=== PATIENT | male | born 1965 | race Caucasian/White ===

== ENCOUNTER 2021-08-10 08:31 | Outpatient (CLI) | payer OTHER, SELFPAY ==
[2021-08-10 09:13] LABS: SARS-CoV-2 Ag Negative (Negative)
[2021-08-10 09:51] LABS: SARS-CoV-2 RNA PCR Positive (Negative)
== END 2021-08-10 08:32 | disposition home or self-care (01) ==
PROVIDERS: PCP Nurse Practitioner Family; Visit Provider Nurse Practitioner Family
DX: U07.1 COVID-19 (principal); J06.9 Acute upper respiratory infection, unspecified; R05.9 Cough, unspecified
CPT/HCPCS: 87426; C9803; U0003; U0005

== ENCOUNTER 2022-08-18 14:06 | Outpatient (CLI) | payer OTHER, SELFPAY ==
--- NOTE | ~2022-08-18 | XR_ITS ---
EXAMINATION: XR shoulder RT min 2V INDICATION: Right shoulder pain TECHNIQUE: Four views of the right shoulder are submitted. COMPARISON: None FINDINGS: Normal alignment. No fracture. There is mild osteoarthritis of the acromioclavicular and gl enohumeral joints. Soft tissues are unremarkable. IMPRESSION: 1. No acute osseous abnormality. Reviewed, dictated and finalized at location B. [facility]
--- NOTE | ~2022-08-18 | XR_ITS ---
EXAMINATION: XR humerus RT INDICATION: Right shoulder pain TECHNIQUE: Two views of the right humerus are obtained. COMPARISON: None available FINDINGS: No fracture, dislocation, or subluxation. The bones, soft tissues, and joint spaces are nor mal. IMPRESSION: 1. No acute osseous abnormality. Reviewed, dictated and finalized at location B. [facility]
== END 2022-08-18 14:07 | disposition home or self-care (01) ==
LOC: CHSIMG 14:09
PROVIDERS: PCP Family Medicine; Visit Provider Family Medicine
DX: M25.511 Pain in right shoulder (principal)
CPT/HCPCS: 73030; 73060

== ENCOUNTER 2022-08-29 10:25 | Outpatient (CLI) | payer OTHER, SELFPAY ==
[2022-08-29 10:38] LABS: Basophils Absolute Auto 0.1 K/mm3 (0.0-0.1); Basophils Percent Auto 1.2 % (0.2-1.2); Eosinophils Absolute Auto 0.4 K/mm3 (0-0.3); Eosinophils Percent Auto 4.4 % (0-4.4); Hematocrit 49.7 % (42.0-52.0); Hemoglobin 17.1 g/dL (14.0-18.0); Immature Granulocyte Absolute 0.06 K/mm3 (0.00-0.031); Immature Granulocyte Percent A 0.7 % (0-0.5); Lymphocytes Absolute Auto 2.06 K/mm3 (0.9-3.2); Lymphocytes Percent Auto 22.6 % (18.3-44.2); Mean Corpuscular HGB Conc 34.4 g/dl (32-36); Mean Corpuscular Hemoglobin 30.1 pg (26-34); Mean Corpuscular Volume 87.5 fl (80-100); Mean Platelet Volume 9.3 fl (7.4-10.4); Monocytes Absolute Auto 0.9 K/mm3 (0.1-0.6); Monocytes Percent Auto 9.7 % (2.6-8.5); Neutrophils Absolute Auto 5.6 K/mm3 (1.3-6.7); Neutrophils Percent Auto 61.4 % (45.5-73.1); Platelet Count Result 256 k/mm3 (150-375); Red Blood Count 5.68 M/mm3 (4.6-6.20); Red Cell Distribution Width 12.3 % (11.5-14.5); White Blood Count 9.1 K/mm3 (4.5-10.0)
[2022-08-29 11:26] LABS: Alanine Aminotransferase 26 U/L (6-50); Albumin Level 4.8 g/dL (3.5-5.1); Alkaline Phosphatase 72 U/L (38-126); Anion Gap 11 mmol/L (8-16); Aspartate Amino Transferase 22 U/L (17-59); Bilirubin,Total 0.8 mg/dL (0.2-1.3); Blood Urea Nitrogen 12 mg/dL (9-20); Calcium 9.4 mg/dL (8.4-10.2); Carbon Dioxide 26 mmol/L (22-30); Chloride 104 mmol/L (98-107); Estimated Glomerular Filt Rate > 60; Glucose 162 mg/dL (65-110); Potassium 4.5 mmol/L (3.4-5.0); Sodium 141 mmol/L (137-145)
[2022-09-02 12:08] LABS: Erythropoietin (EPO) 15.3 mIU/mL (2.6-18.5)
== END 2022-08-29 10:26 | disposition home or self-care (01) ==
LOC: ANHLAB 10:26
PROVIDERS: PCP Family Medicine; Visit Provider Internal Medicine Hematology & Oncology
DX: D75.1 Secondary polycythemia (principal)
CPT/HCPCS: 36415; 80053; 82668; 85025

== ENCOUNTER 2022-09-20 07:23 | Outpatient (CLI) | payer OTHER, SELFPAY ==
--- NOTE | ~2022-09-20 | MR_ITS ---
MRI of the right shoulder Technique: Axial proton-density fat-sat images, coronal proton density fat-sat and T2 fat-sat images, and sagittal T1-weighted and T2 fat-sat images were acquired. Clinical History: Pain Findings: There is severe degenerative change at the AC joint. Coracoclavicular, coracoacromial, and coracohumeral ligaments appear intact. There is mild supraspinatus and infraspinatus tendinosis. No definite partial or full-thickness tear. Subscapularis tendon is intact, with moderate tendinosis. Tendon of the long head of the biceps is i ntact. There are degenerative tearing of the superior labrum, extending to the anterosuperior, anterior, pro bably anteroinferior portions. Inferior glenohumeral ligament is intact. No degenerative change or effusion of the glenohumeral join t. No fluid distention of the subacromial/subdeltoid bursa. No muscle atrophy or edema. Impression: Severe AC joint degenerative change. Probable degenerative tearing of the superior labrum, extending to the anterosuperior, anterior, and possibly anteroinferior portions. Reviewed, dictated and finalized at location . [employer]CH[employer] Impression: Severe AC joint degenerative change. Probable degenerative tearing of the superior labrum, extending to the anterosu perior, anterior, and possibly anteroinferior portions.
== END 2022-09-20 07:24 | disposition home or self-care (01) ==
LOC: CHSIMG 07:23
PROVIDERS: PCP Family Medicine; Visit Provider Family Medicine
DX: M25.511 Pain in right shoulder (principal)
CPT/HCPCS: 73221

== ENCOUNTER 2023-01-08 09:52 | Outpatient (CLI) | payer OTHER, SELFPAY ==
[2023-01-08 10:02] LABS: Basophils Absolute Auto 0.1 K/mm3 (0.0-0.1); Basophils Percent Auto 0.7 % (0.2-1.2); Eosinophils Absolute Auto 0.4 K/mm3 (0-0.3); Eosinophils Percent Auto 3.1 % (0-4.4); Hematocrit 49.3 % (42.0-52.0); Hemoglobin 17.2 g/dL (14.0-18.0); Immature Granulocyte Absolute 0.08 K/mm3 (0.00-0.031); Immature Granulocyte Percent A 0.6 % (0-0.5); Lymphocytes Absolute Auto 1.68 K/mm3 (0.9-3.2); Lymphocytes Percent Auto 12.1 % (18.3-44.2); Mean Corpuscular HGB Conc 34.9 g/dl (32-36); Mean Platelet Volume 9.3 fl (7.4-10.4); Monocytes Absolute Auto 0.8 K/mm3 (0.1-0.6); Neutrophils Absolute Auto 10.7 K/mm3 (1.3-6.7); Neutrophils Percent Auto 77.5 % (45.5-73.1); Platelet Count Result 285 k/mm3 (150-375); Red Blood Count 5.73 M/mm3 (4.6-6.20); Red Cell Distribution Width 12.2 % (11.5-14.5); White Blood Count 13.9 K/mm3 (4.5-10.0)
[2023-01-08 10:11] LABS: Blood Urea Nitrogen 14 mg/dL (8-26); Carbon Dioxide 25 mmol/L (22-30); Chloride 102 mmol/L (98-109); Estimated Glomerular Filt Rate > 60; Glucose 151 mg/dL (70-105); Ionized Calcium (POC) 1.19 mmol/L (1.11-1.31); Potassium 4.3 mmol/L (3.5-4.9); Sodium 139 mmol/L (138-146)
== END 2023-01-08 09:53 | disposition home or self-care (01) ==
LOC: ANHLAB 09:53
PROVIDERS: PCP Family Medicine; Visit Provider Internal Medicine Hematology & Oncology
DX: D75.1 Secondary polycythemia (principal)
CPT/HCPCS: 36415; 80047; 85025

== ENCOUNTER 2023-01-09 15:44 | Emergency (ER) | payer OTHER, SELFPAY ==
--- NOTE | ~2023-01-09 | XR_ITS ---
EXAMINATION: XR chest 1V portable INDICATION: Cough and congestion TECHNIQUE: Portable AP chest at 1606 hours COMPARISON: None available FINDINGS: The lungs are free of acute opacities. No pleural effusion or pneumothorax. The cardiomedia stinal silhouette is normal. There is eventration of the right hemidiaphragm. IMPRESSION: 1. No acute cardiopulmonary abnormality. Reviewed, dictated and finalized at location B.
[2023-01-09 15:44] VITALS: BP 140/89; PULSE 107; RESP 20; TEMP 36.4; O2SAT 97
[2023-01-09 15:45] VITALS: O2SAT 97
--- NOTE | 2023-01-09 15:57 | ED.URI ---
HPI - URI/Sore Throat General Chief Complaint: Upper Respiratory Infection Stated Complaint: body aches, short of breath Time Seen by Provider: 01/09/23 15:53 Source: patient and RN notes reviewed Mode of arrival: ambulatory Limitations: no limitations History of Present Illness MD elicited complaint: fever and cough Onset (ago): day(s) (1) Consistency: constant Severity: moderate Description of mucous: clear Able to tolerate fluids by mouth: Yes Exacerbating factors: nothing Relieving factors: nothing Context: sick contacts Associated symptoms: fever ( subjective), chills, myalgias and headache Treatments prior to arrival: none Related Data Home Medications Medication Instructions Recorded Confirmed lisinopril 10 mg tablet 10 mg PO DAILY 01/09/23 01/09/23 metformin 500 mg tablet 1,000 mg PO BID 01/09/23 01/09/23 Allergies Allergy/AdvReac Type Severity Reaction Status Date / Time No Known Allergies Allergy Mild Unverified 12/25/22 09:40 Review of Systems Review of Systems: All systems reviewed & are unremarkable except as noted in HPI and below Gastrointestinal: Gastrointestinal: Denies nausea and Denies vomiting PMFSH Family History Family History (System 12/25/22 @ 09:40 by Heidi Lucero) Grandparent Family history of malignant neoplasm Other Diabetes mellitus Family history of coronary artery disease Hypertension Social History Social History Smoking status: Smoker, status unknown Alcohol intake: current Exam Const: General: no acute distress, alert and ill appearing acutely Nutritional Appearance: well nourished Orientation/consciousness: patient oriented x3 Limitations: no limitations HENMT: Head: normal to inspection Ears: external ears normal Face/Nose/Sinus: Normal external nose present Face and sinus: normal facial exam Mouth: Yes moist mucous membranes Eyes: Conjunctivae: conjunctivae normal Pupils: Equal, round and reactive pupils present EOM: EOMs intact bilaterally Neck: Neck: normal visual inspection Resp: Effort & Inspection: normal respiratory effort Auscultation: clear to auscultation bilaterally Cardio: Rate: tachycardic Rhythm: regular rhythm GI: GI Palp: Yes Soft to palpation and No Tenderness to palpation present (GI) Auscultation: normal bowel sounds Back/Spine/Pelvis: Cervical Spine: cervical ROM normal Thoracic/Lumbar Spine: thoraco-lumbar ROM normal Skin: General skin exam: normal color Rashes: no rashes Neuro: General: patient oriented x3, moves all extremities, no focal motor deficits and CN's II-XI intact bilaterally Speech: normal speech Gait exam (Neuro): Normal gait present Extrem: General: normal to inspection and no clubbing, cyanosis or edema Psych: Mental Status: mental status grossly normal Affect: normal affect Attitude: cooperative Course Vital Signs Vital signs: Vital Signs Temperature 36.4 C L 01/09/23 15:44 Pulse Rate 107 H 01/09/23 15:44 Respiratory Rate 20 01/09/23 15:44 Blood Pressure 140/89 01/09/23 15:44 Pulse Oximetry 97 01/09/23 15:44 Oxygen Delivery Room Air 01/09/23 15:44 Temperature 36.4 C L 01/09/23 15:44 Pulse Rate 107 H 01/09/23 15:44 Respiratory Rate 20 01/09/23 15:44 Blood Pressure 140/89 01/09/23 15:44 Pulse Oximetry 97 01/09/23 15:44 Oxygen Delivery Room Air 01/09/23 15:44 MDM - URI/Sore Throat Differential Diagnosis Differential diagnosis: Likely upper respiratory infection, viral infection, bronchitis, influenza and other ( COVID, anemia, electrolyte abnormality, pneumonia) Lab Data Attestation: I reviewed the patient's lab results. Discharge Plan Discharge Clinical Impression: Influenza Patient Disposition: Home, Self-Care Condition: Stable Instructions: Influenza (ED) Additional Instructions: Get plenty of rest, drink plenty of fluids. Tylenol or Motrin as needed for fever chi
[2023-01-09 16:19] LABS: Hematocrit 49.2 % (40.0-54.0); Hemoglobin 17.2 g/dL (14.0-18.0); Mean Corpuscular Volume 85.9 fL (78.0-102.0); Mean Platelet Volume 9.4 fl (8.7-11.0); Platelet Count Result 226 K/mm3 (150-420); Red Blood Count 5.73 M/mm3 (4.70-6.10); White Blood Count 7.9 K/mm3 (4.8-10.8)
[2023-01-09 16:35] LABS: Alanine Aminotransferase 25 U/L (16-63); Alkaline Phosphatase 75 U/L (46-116); Anion Gap 11 mmol/L (8-16); Aspartate Amino Transferase 14 U/L (15-37); Blood Urea Nitrogen 11 mg/dL (7-18); CRP 3.3 mg/dL (0.0-0.9); Calcium 8.9 mg/dL (8.5-10.1); Carbon Dioxide 25 mmol/L (21-32); Chloride 101 mmol/L (98-108); Estimated CRCL calculation 103 ml/min; Estimated Glomerular Filt Rate > 60; Glucose 120 mg/dL (70-99); Magnesium 1.8 mg/dL (1.8-2.4); Osmolality Calculated 284 mOsm/kg (285-295); Sodium 137 mmol/L (136-145); Total Protein 7.3 g/dL (6.4-8.2)
[2023-01-09 16:45] LABS: Band Neutrophils Percent 0 % (0-6); Basophils Percent Manual 0 % (0-1); Eosinophils Absolute Manual 0.07 K/mm3 (0.02-0.5); Eosinophils Percent Manual 1 % (1-6); Lymphocytes Absolute Manual 1.02 K/mm3 (1.1-4.5); Lymphocytes Percent Manual 13 % (18-44); Monocytes Absolute Manual 1.26 K/mm3 (0.1-0.90); Monocytes Percent Manual 16 % (3-9); Neutrophils Absolute Manual 5.53 K/mm3 (1.3-6.7); Neutrophils Percent Manual 70 % (46-73); Platelet Estimate Adequate (Adequate); Total Cells Counted 100
[2023-01-09 16:46] LABS: Influenza A QL RT-PCR Positive (Negative); Influenza B QL RT-PCR Negative (Negative); SARS-CoV-2 RNA PCR Negative (Negative)
[2023-01-09 16:50] VITALS: BP 115/86; PULSE 89; RESP 20; TEMP 36.4; O2SAT 97
== END 2023-01-09 16:53 | disposition home or self-care (01) ==
PROVIDERS: Emergency Provider Emergency Medicine; PCP Family Medicine
DX: J11.1 Influenza due to unidentified influenza virus with other respiratory manifestations (principal); Z79.84 Long term (current) use of oral hypoglycemic drugs; Z20.822 Contact with and (suspected) exposure to COVID-19
CPT/HCPCS: 36415; 71045; 80053; 83605; 83735; 85025; 86140; 87636; 88305; 99283

== ENCOUNTER 2024-08-29 08:35 | Outpatient (CLI) | payer OTHER, SELFPAY ==
--- NOTE | 2024-08-29 08:51 | EST_ITS ---
Patient Info Name: Kranthi Dawson Age: 58 years : 1965 Gender: Male Ht: 68 in Wt: 220 lbs BSA: 2.22 m2 HR: 99 bpm BP: 124 / 93 mmHg Heart Rhythm: Right Bundle Branch Block, Sinus Rhythm Technical Quality: Fair Exam Date: 08/29/2024 9:11 AM Exam Location: [facility] Patient Status: Outpatient Admit Date: 08/29/2024 Staff Ordering Physician: Ha Sena MD Attending Provider: Ha Sena MD Exam Type: CA stress test treadmill Study Info A treadmill exercise stress test was performed. History/Risk Factors Hypertension: Yes Diabetes Mellitus: Yes Tobacco Use: Current - Frequency Unknown Summary 1. 1. Negative Judah exercise stress test for ischemic ST changes by ECG criteria. 2. 2. Reduced functional capacity, achieving 7 METs of workload. 3. 3. Hypertensive response to exercise. 4. 4. Appropriate HR response to exercise. 5. 5. Appropriate HR recovery at 1 minute post exercise. 6. 6. No imaging with stress testing. Protocol: Judah Stress ECG Details Stage: REST Duration (min): 0 min : 48 sec Speed (mph): 0.0 Grade (%): 0 HR (bpm): 97 SBP (mmHg): --- DBP (mmHg): --- METS: --- Stage: REST Duration (min): 1 min : 51 sec Speed (mph): 0.0 Grade (%): 0 HR (bpm): 99 SBP (mmHg): 124 DBP (mmHg): 93 METS: --- Stage: REST Duration (min): 24 min : 2 sec Speed (mph): 0.0 Grade (%): 0 HR (bpm): 105 SBP (mmHg): 124 DBP (mmHg): 93 METS: --- Stage: STAGE 1 Duration (min): 1 min : 0 sec Speed (mph): 1.7 Grade (%): 10 HR (bpm): 135 SBP (mmHg): 124 DBP (mmHg): 93 METS: --- Stage: STAGE 1 Duration (min): 2 min : 0 sec Speed (mph): 1.7 Grade (%): 10 HR (bpm): 137 SBP (mmHg): 124 DBP (mmHg): 93 METS: --- Stage: STAGE 1 Duration (min): 3 min : 0 sec Speed (mph): 1.7 Grade (%): 10 HR (bpm): 145 SBP (mmHg): 189 DBP (mmHg): 95 METS: --- Stage: STAGE 2 Duration (min): 1 min : 0 sec Speed (mph): 2.5 Grade (%): 12 HR (bpm): 152 SBP (mmHg): 189 DBP (mmHg): 95 METS: --- Stage: STAGE 2 Duration (min): 2 min : 0 sec Speed (mph): 2.5 Grade (%): 12 HR (bpm): 161 SBP (mmHg): 189 DBP (mmHg): 95 METS: --- Stage: STAGE 2 Duration (min): 3 min : 0 sec Speed (mph): 3.4 Grade (%): 14 HR (bpm): 148 SBP (mmHg): 168 DBP (mmHg): 107 METS: --- Stage: RECOVERY Duration (min): 1 min : 0 sec Speed (mph): 0.0 Grade (%): 0 HR (bpm): 145 SBP (mmHg): 168 DBP (mmHg): 107 METS: --- Stage: RECOVERY Duration (min): 2 min : 0 sec Speed (mph): 0.0 Grade (%): 0 HR (bpm): 130 SBP (mmHg): 206 DBP (mmHg): 103 METS: --- Stage: RECOVERY Duration (min): 3 min : 0 sec Speed (mph): 0.0 Grade (%): 0 HR (bpm): 116 SBP (mmHg): 206 DBP (mmHg): 103 METS: --- Stage: RECOVERY Duration (min): 4 min : 0 sec Speed (mph): 0.0 Grade (%): 0 HR (bpm): 116 SBP (mmHg): 181 DBP (mmHg): 101 METS: --- Stage: RECOVERY Duration (min): 5 min : 0 sec Speed (mph): 0.0 Grade (%): 0 HR (bpm): 116 SBP (mmHg): 181 DBP (mmHg): 101 METS: --- Stage: RECOVERY Duration (min): 6 min : 0 sec Speed (mph): 0.0 Grade (%): 0 HR (bpm): 111 SBP (mmHg): 150 DBP (mmHg): 101 METS: --- Stage: RECOVERY Duration (min): 7 min : 0 sec Speed (mph): 0.0 Grade (%): 0 HR (bpm): 113 SBP (mmHg): 150 DBP (mmHg): 101 METS: --- Stage: RECOVERY Duration (min): 7 min : 31 sec Speed (mph): 0.0 Grade (%): 0 HR (bpm): 116 SBP (mmHg): 141 DBP (mmHg): 102 METS: --- Rest HR: 105 bpm Peak HR: 167 bpm Rest Sys BP: 124 mmHg Peak Sys BP: 206 mmHg Max Pred HR: 164 bpm % Max Pred HR: 102 % Target HR: 139 bpm Max RPP: 34,402 bpm*mmHg Cristina Score: -33 Target HR Summary: Test terminated after reaching maximum heart rate BP Response: Patient exhibited a hypertensive response with stress Termination Reason: Fatigue,Dyspnea Maximum heart rate obtained Cardiac Symptoms: None Max ST Seg Deviation: 7.80 mm Total Time: 6 min : 0 sec Rest Johnson BP: 93 mmHg Peak Johnson BP: 103 mmHg Angina Score: None Total METS: 7.1 Resting ECG Normal sinus rhythm - normal ECG. Right bundle branch block. Stress ECG No abnormal ST/T wave changes with exercise. Arrhythmias Frequent PVCs. Report Signatures
--- OUTSIDE RECORDS SUMMARY | 2024-08-29 11:28 | XMS_ITS | Clinical Summary ---
Author Organization [facility] Address [address] [place] [address] Care Team Providers Care [employer] Name Role Phone Ha Sena MD Primary Care Provider [phone] Allergies No known active allergies Medications lisinopriL (PRINIVIL) 10 mg tablet Take 10 mg by mouth daily. 07/08/2022 Active Farxiga 10 mg Tablet Take 10 mg by mouth daily in the morning. 08/05/2022 Active multivitamins with minerals Tablet Take 1 Tablet by mouth daily. Active omeprazole (PriLOSEC) 10 mg Capsule, Delayed Release(E.C.) Take 10 mg by mouth daily. Active aspirin (ECOTRIN EC) 81 mg Tablet, Delayed Release (E.C.) Take 81 mg by mouth daily. Active semaglutide (Rybelsus) 3 mg Tablet Take 3 mg by mouth daily. Active Active Problems Problem Noted Date Diagnosed Date Type 2 diabetes mellitus wit h hyperglycemia, without long-term current use of insulin 08/22/2024 Mild dehydration 08/22/2024 Encounters Date Type Department Care Team Description 08/22/2024 11:51 AM LAST CLEANER - 08/22/2024 2:50 PM [facility] Emergency [facility] Emergency Medicine [address] [place] [address] Savanna Reyez MD Mild dehydration (Primary Dx); Type 2 diabetes mellitus with hyperglycemia, without long-term current use of insulin ([facility]) Discharge Disposition: Home or Self Care 08/22/2024 Travel from Last 3 Months Family History Medical History Relation Name Comments No Known Problems Daughter 1 No Known Problems Daughter 2 No Known Problems Father No Known Problems Mother No Known Problems Sister No Known Problems Son Relation Name Status Comments Daughter 1 Alive Daughter 2 Alive Father Alive Mother Alive Sister Alive Son Alive Social History Tobacco Use Types Packs/Day Years Used Date Smoking Tobacco: Some Days Cigarettes 0.5 35 Tobacco Cessation:Ready to Q uit: Not Asked; Counseling Given: Not Answered Alcohol Use Standard Drinks/Week Comments Yes 1 (1 standard drink = 0.6 oz pur e alcohol) Feeling Safe Answer Date Recorded Are you in a relationship wi th someone who hurts you emotionally and/or physically? No 08/22/2024 Sex and Gender Information Value Date Recorded Sex Assigned at Not on file Legal Sex Male 10:55 AM LAST CLEANER Gender Identity Not on file Sexual Orientation Not on file Last Filed Vital Signs Vital Sign Reading Time Taken Comments Blood Pressure 160/107 08/22/2024 2:42 PM LAST CLEANER Pulse 74 08/22/2024 2:00 PM LAST CLEANER Temperature 35.7 C (96.3 F) 08/22/2024 11:27 AM LAST CLEANER Respiratory Rate 18 08/22/2024 2:42 PM LAST CLEANER Oxygen Saturation 99% 08/22/2024 2:00 PM LAST CLEANER Inhaled Oxygen Concentration - - Weight 101.7 kg (224 lb 3.2 oz) 025 11:27 AM LAST CLEANER Height 172.7 cm (5' 8 ) 08/22/2024 11:2 7 AM LAST CLEANER Body Mass Index 34.09 08/22/2024 11:27 AM LAST CLEANER Plan of Treatment Health Maintenance Due Date Last Done Comments DIABETES ANNUAL FOOT EXAM 11/06/1985 DIABETES ANNUAL RETINAL EXAM 11/06/1985 DIABETES HBA1C Q 6 MONTHS 11/06/1985 DIABETES MICROALBUMIN ANNUAL SCREEN 11/06/1985 LDL CHOLESTEROL ANNUAL 11/06/1985 DTAP/TDAP/TD VACCINES (1 - Tdap) 11/06/1986 HEPATITIS B VACCINES (1 of 3 - 19+ 3-dose series) 10/12 COLORECTAL SCREENING 11/06/2012 Colorectal Cancer Screening 11/06/2012 FIT-DNA Q 3 years 11/06/2012 FIT/FOBT Q 1 year 11/06/2012 Flex Sig/CT Colonography Q 5 years 11/06/2012 ZOSTER VACCINE (1 of 2) 11/06/2017 INFLUENZA VACCINE (#1) 2024 Preventative Visit- Commercial 07/13/2024 Procedures Procedure Name Priority Date/Time Associated Diagnosis Comments EKG 12-LEAD Stat 08/22/2024 2:41 PM LAST CLEANER TSH Stat 08/22/2024 12:25 PM LAST CLEANER LACTIC ACID Stat 08/22/2024 12:25 PM LAST CLEANER LIPASE Stat 08/22/2024 12:25 PM LAST CLEANER TROPONIN BASELINE, 5TH GEN Stat 08/22/2024 12:25 PM LAST CLEANER MAGNESIUM LEVEL Stat 08/22/2024 12:25 PM LAST CLEANER C-REACTIVE PROTEIN Stat 08/22/2024 12 :25 PM LAST CLEANER BRAIN NATRIURETIC PEPTIDE, BNP OR PROBNP Stat 08/22/2024 12:25 PM LAST CLEANER COVID-19 ANTIGEN Stat 08/22/2024 12:2 5 PM LAST CLEANER D-DIMER Stat 08/22/2024 12:25 PM LAST CLEANER PTT Stat 08/22/2024 12:25 PM LAST CLEANER PROTIME-INR Stat 08/22/2024 12:25 PM LAST CLEANER SEDIMENTATION RATE Stat 08/22/2024 12 :25 PM LAST CLEANER COMPREHENSIVE METABOLIC PANEL Stat 08/22/2024 12:25 PM LAST CLEANER CBC WITH DIFFERENTIAL Stat 08/22/2024 12:25 PM LAST CLEANER INFLUENZA VIRUS A AND B, ANTIGEN DETECTION Stat 08/22/2024 12:25 PM LAST CLEANER POC GLUCOSE Stat 08/22/2024 11:34 AM LAST CLEANER from Last 3 Months Results * EKG 12 lead (08/22/2024 2:41 PM LAST CLEANER) Savanna Sykes MD - 08/22/2024 2:41 PM LAST CLEANER Savanna Reyez MD 08/28/2024 3:19 PM EKG 12 lead Date/Time: 08/22/2024 2:41 PM Performed by: Savanna Reyez MD Authorized by: Savanna Reyez MD ECG interpreted by ED Physician in the absence of a form tamping machine operator: yes Rate: ECG rate: 77 ECG rate assessment: age appropriate Rhythm: Rhythm Origin: sinus [place]: QRS axis: Left Intervals: normal Blocks: BBB: Right QRSTT: QRSTT changes: No R wave transition: Good Comments: No prior EKG to compare to. Savanna Reyez MD ECG ORDERABLES Final Result * COVID-19 ANTIGEN (08/22/2024 12:25 PM LAST CLEANER) [facility] COVID-19 ANTIGEN Presumptive Negative Presumptive Negative 08/22/2024 1:12 PM [facility] Upper Respiratory ANTERIOR NARES SWAB / Unknown Collection / Unknown 08/22/2024 12:25 PM LAST CLEANER 08/22/2024 12:41 PM LAST CLEANER [facility] - 08/22/2024 1:12 PM LAST CLEANER Tanvi SARS antigen test has been authorized by FDA under an emergency use authorization (EUA) and has been authorized only for the detection of proteins from SARS-CoV-2 and influenza, not for any other viruses or pathogens. Tanvi SARS Antigen CATRACHITA is intended for the simultaneous qualitative detection and differentiation of nucleocapsid protein antigen from SARS-CoV-2 directly from nasopharyngeal (TRAINING MGR) and nasal (NS) swab specimens collected from individuals who are suspected of respiratory viral infection consistent with COVID-19 by their healthcare provider within the first five (5) days of symptom onset when tested at least twice over three days with at least 48 hours between tests, or from individuals without symptoms or other epidemiological reasons to suspect COVID-19 when tested at least three times over five days with at least 48 hours between tests. This test is only authorized for the duration of the declaration that circumstances exist justifying the authorization of emergency use of in vitro diagnostics for detection and/or diagnosis of the virus that causes COVID-19 under Section 564(b)(1) of the Act, 21 U.S.C. 360bbb-3(b)(1), unless the authorization is terminated or revoked sooner. Negative results should be treated as presumptive and confirmed with a molecular assay, if necessary for patient care. Serial testing should be performed in individuals with negative results at least twice over three days (with 48 hours between tests) for symptomatic individuals or from individuals without symptoms or other epidemiological reasons to suspect COVID-19 when tested at least three times over five days with at least 48 hours between tests. us Savanna Reyez MD MICROBIOLOGY - GENERAL ORDERABL ES Final Result Performing Organization Address [facility]/ZIP Co de Phone Number [id number] [address] [place] [address] * TROPONIN BASELINE, 5TH GEN (08/22/2024 12:25 PM LAST CLEANER) [facility] TROPONIN T, BASELINE 5TH GEN 7 <=15 ng/L 08/22/2024 1:19 PM [facility] Blood Venipuncture / Unknown 08/22/2024 12:25 PM LAST CLEANER 08/22/2024 12:39 PM LAST CLEANER [facility] - 08/22/2024 1:19 PM LAST CLEANER Troponin Detectable but normal range. us Savanna Reyez MD CHEMISTRY ORDERABLES Final Resu lt Performing Organization Address [facility]/ZIP Co de Phone Number [facility] CLIA # [id number] [address] [place] [address] * INFLUENZA VIRUS A AND B, ANTIGEN DETECTION (08/22/2024 12:25 PM LAST CLEANER) Pathologist [facility] INFLUENZA A AG NOT DETECTED Not Detected 08/22/2024 1:11 PM [facility] INFLUENZA B AG NOT DETECTED Not Detected 08/22/2024 1:11 PM [facility] Upper Respiratory ENTIRE NASOPHARYNX / Unknown Collection / Unknown 08/22/2024 12:25 PM LAST CLEANER 08/22/2024 12:41 PM LAST CLEANER Narrative [facility] - 08/22/2024 1:11 PM LAST CLEANER Negative results do not rule out infection. If clinically indicated, consider PCR testing which is more sensitive than antigen testing. If PCR testing is desired, consult with your local laboratory as sample recollection may be required. Savanna Reyez MD MICROBIOLOGY - GENERAL ORDERABL ES Final Result Performing Organization Address City/[facility]/ZIP Co de Phone Number [facility] [id number] [address] [place] [address] * (ABNORMAL) LACTIC ACID (08/22/2024 12:25 PM LAST CLEANER) LACTIC ACID 2.1(H) <=2.0 mmol/L 08/22/2024 1:19 PM LAST CLEANER [facility] Blood BLOOD SPECIMEN / Unknown Venipuncture / Unknown 08/22/2024 12:25 PM LAST CLEANER 08/22/2024 12:39 PM LAST CLEANER Savanna Reyez MD CHEMISTRY ORDERABLES Final Resu lt Performing Organization Address City/[facility]/ZIP Co de Phone Number [facility] # [id number] [address] [place] [address] * (ABNORMAL) CBC WITH DIFFERENTIAL (08/22/2024 12:25 PM LAST CLEANER) WBC 12.9(H) 4.2 - 9.1 K/uL 08/22/2024 1:06 PM [facility] RBC 5.84 4.63 - 6.08 M/uL 08/22/2024 1:06 PM [facility] HEMOGLOBIN 17.2 13.7 - 17.5 g/dL 08/22/2024 1:06 PM [facility] HEMATOCRIT 47.7 40.1 - 51.0 % 08/22/2024 1:06 PM [facility] MCV 81.7 79.0 - 92.2 fL 08/22/2024 1:06 PM [facility] MCH 29.5 25.7 - 32.2 pg 08/22/2024 1:06 PM [facility] MCHC 36.1 32.3 - 36.5 g/dL 08/22/2024 1:06 PM [facility] RDW 12.2 11.0 - 14.5 % 08/22/2024 1:06 PM [facility] RDW-STDEV 35.8(L) 36.9 - 56.9 fL 08/22/2024 1:06 PM [facility] PLATELETS 270 130 - 400 K/uL 08/22/2024 1:06 PM [facility] MPV 9.9(L) 10.0 - 14.8 fL 08/22/2024 1:06 PM [facility] NEUTROPHILS 69(H) 34 - 68 % 08/22/2024 1:06 PM [facility] LYMPHOCYTES 21(L) 22 - 53 % 08/22/2024 1:06 PM [facility] MONOCYTES 6 5 - 12 % 08/22/2024 1:06 PM [facility] EOSINOPHILS 2 1 - 7 % 08/22/2024 1:06 PM [facility] BASOPHILS 1 0 - 1 % 08/22/2024 1:06 PM [facility] IMMATURE GRANULOCYTES 1 % 08/22/2024 1:06 PM [facility] NEUTROPHIL ABSOLUTE 8.88(H) 1.78 - 5.38 K/uL 08/22/2024 1:06 PM [facility] LYMPHOCYTE ABSOLUTE 2.72 1.20 - 3.40 K/uL 08/22/2024 1:06 PM [facility] MONOCYTE ABSOLUTE 0.81 0.30 - 0.82 K/uL 08/22/2024 1:06 PM [facility] EOSINOPHIL ABSOLUTE 0.24 0.04 - 0.54 K/uL 08/22/2024 1:06 PM [facility] BASOPHILS ABSOLUTE 0.12(H) 0.01 - 0.08 K/uL 08/22/2024 1:06 PM LAST CLEANER [facility] IMMATURE GRANULOCYTES ABSOLUTE 0.08 K/uL 08/22/2024 1:06 PM [facility] Blood Venipuncture / Unknown 08/22/2024 12:25 PM LAST CLEANER 08/22/2024 12:39 PM LAST CLEANER us Savanna Reyez MD HEMATOLOGY ORDERABLES Final Res ult Performing Organization Address City/[facility] Co de Phone Number [facility] # [id number] [address] [place] [address] * (ABNORMAL) PTT (08/22/2024 12:25 PM LAST CLEANER) PTT 25.5(L) 25.8 - 34.0 seconds 08/22/2024 1:07 PM [facility] Blood Venipuncture / Unknown 08/22/2024 12:25 PM LAST CLEANER 08/22/2024 12:39 PM LAST CLEANER Result Cheri Reyez MD HEMATOLOGY ORDERABLES Final Res ult Performing Organization Address [facility] Co de Phone Number [facility] # [id number] [address] [place] [address] * SEDIMENTATION RATE (08/22/2024 12:25 PM LAST CLEANER) ESR (SEDIMENTATION RATE) 3 0 - 20 mm/Hr 08/22/2024 1:27 PM LAST CLEANER [facility] Blood Venipuncture / Unknown 08/22/2024 12:25 PM LAST CLEANER 08/22/2024 12:39 PM LAST CLEANER Narrative [facility] - 08/22/2024 1:27 PM LAST CLEANER T[employer] Lot: #[id number] Exp Date: 12/10/2025 SR 0125-1 EXP. 01/14/25 SR 0125-2 EXP. 01/14/25 us Savanna Reyez MD HEMATOLOGY ORDERABLES Final Res ult Performing Organization Address City/[facility] Co de Phone Number [facility] # [id number] [address] [place] [address] * PROTIME-INR (08/22/2024 12:25 PM LAST CLEANER) PROTIME 12.3 11.9 - 14.6 Seconds 08/22/2024 1:07 PM [facility] INR 0.9 0.9 - 1.1 08/22/2024 1:07 PM [facility] Blood Venipuncture / Unknown 08/22/2024 12:25 PM LAST CLEANER 08/22/2024 12:39 PM LAST CLEANER us Savanna Reyez MD HEMATOLOGY ORDERABLES Final Res ult Performing Organization Address [facility] de Phone Number [facility] # [id number] [address] [place] [address] * D-DIMER (08/22/2024 12:25 PM LAST CLEANER) Pathologist [facility] D-DIMER QUANT <0.15 <0.50 ug/mL FEU 08/22/2024 1:08 PM LAST CLEANER [facility] Blood Venipuncture / Unknown 08/22/2024 12:25 PM LAST CLEANER 08/22/2024 12:39 PM LAST CLEANER Narrative [facility] - 08/22/2024 1:08 PM LAST CLEANER D-Dimer assay cutoff value for exclusion of DVT and/or PE is <0.50 ug/mL FEU. As D-Dimer levels increase naturally with age, age stratification for patients over 50 is potentially more appropriate in determining whether a patient should undergo further evaluation for DVT and/or PE than a general cutoff of 0.50 ug/mL FEU. Clinical consideration is recommended. Age Stratified Cutoff Values: 50-60 years: 0.50-0.60 ug/mL FEU 61-70 years: 0.61-0.70 ug/mL FEU 71-80 years: 0.71-0.80 ug/mL FEU us Savanna Reyez MD HEMATOLOGY ORDERABLES Final Res ult Performing Organization Address [facility] Co de Phone Number [facility] CLIA # [id number] [address] [place] [address] * C-REACTIVE PROTEIN (08/22/2024 12:25 PM LAST CLEANER) CRP <3.0 <5.0 mg/L 08/22/2024 1:0 8 PM LAST CLEANER [facility] Blood Venipuncture / Unknown 08/22/2024 12:25 PM LAST CLEANER 08/22/2024 12:39 PM LAST CLEANER us Savanna Reyez MD CHEMISTRY ORDERABLES Final Resu lt Performing Organization Address [facility] Co tx Phone Number [facility] CLIA # [id number] [address] [place] [address] * TSH (08/22/2024 12:25 PM LAST CLEANER) TSH 1.17 0.27 - 4.20 uIU/mL 08/22/2024 1:19 PM LAST CLEANER [facility] Blood Venipuncture / Unknown 08/22/2024 12:25 PM LAST CLEANER 08/22/2024 12:39 PM LAST CLEANER us Savanna Reyez MD CHEMISTRY ORDERABLES Final Resu lt Performing Organization Address [facility] Co de Phone Number [facility] CLIA # [id number] [address] [place] [address] * BRAIN NATRIURETIC PEPTIDE, BNP OR PROBNP (08/22/2024 12:25 PM LAST CLEANER) PROBNP, N TERMINAL <36 0 - 125 pg/mL 08/22/2024 1:08 PM LAST CLEANER [facility] Comment: INTERPRETIVE COMMENT based on diagnosis: Diagnostic NT pro-BNP cutoffs for Heart Failure in the absence of renal failure is suggested for the following ranges <75 years: <125 pg/mL >=75 years: <450 pg/mL Exclusionary rule out cut-point for Acute Decompensated Heart Failure(ADHF) All ages: <300 pg/mL Diagnostic NT pro-BNP cutoffs for Acute Decompensated Heart Failure(ADHF) in the absence of renal failure is suggested for the following ages <50 years: > 450 pg/mL 50-75 years: > 900 pg/mL >75 years: >1800 pg/mL Blood Venipuncture / Unknown 08/22/2024 12:25 PM LAST CLEANER 08/22/2024 12:39 PM LAST CLEANER Result Cheri Reyez MD CHEMISTRY ORDERABLES Final Resu lt Performing Organization Address [facility] Co de Phone Number [facility] CLIA # [id number] [address] [place] [address] * MAGNESIUM LEVEL (08/22/2024 12:25 PM LAST CLEANER) MAGNESIUM 1.8 1.6 - 2.6 mg/dL 08/22/2024 1:08 PM LAST CLEANER [facility] Blood Venipuncture / Unknown 08/22/2024 12:25 PM LAST CLEANER 08/22/2024 12:39 PM LAST CLEANER Result Cheri Reyez MD CHEMISTRY ORDERABLES Final Resu lt Performing Organization Address [facility]/ZIP Co de Phone Number [facility] CLIA # [id number] [address] [place] [address] * LIPASE (08/22/2024 12:25 PM LAST CLEANER) LIPASE 38 13 - 60 U/L 08/22/2024 1:08 PM LAST CLEANER [facility] Blood Venipuncture / Unknown 08/22/2024 12:25 PM LAST CLEANER 08/22/2024 12:39 PM LAST CLEANER Result Cheri Reyez MD CHEMISTRY ORDERABLES Final Resu lt [facility] CLIA # [id number] [address] [place] [address] * (ABNORMAL) COMPREHENSIVE METABOLIC PANEL (08/22/2024 12:25 PM [facility]) SODIUM 137 136 - 145 mmol/L 08/22/2024 1:08 PM [facility] POTASSIUM 4.2 3.5 - 5.1 mmol/L 08/22/2024 1:08 PM [facility] CHLORIDE 100 98 - 107 mmol/L 08/22/2024 1:08 PM [facility] CO2 23 22 - 29 mmol/L 08/22/2024 1:08 PM [facility] CALCIUM 9.6 8.6 - 10.0 mg/dL 08/22/2024 1:08 PM [facility] BUN 8 6 - 20 mg/dL 08/22/2024 1:08 PM [facility] CREATININE 0.60(L) 0.67 - 1.17 mg/dL 08/22/2024 1:08 PM [facility] GLUCOSE 254(H) 74 - 99 mg/dL 08/22/2024 1:08 PM [facility] TOTAL PROTEIN 6.9 6.6 - 8.7 g/dL 08/22/2024 1:08 PM [facility] ALBUMIN 4.6 4.0 - 4.9 g/dL 08/22/2024 1:08 PM [facility] BILIRUBIN TOTAL 0.8 <=1.2 mg/dL 08/22/2024 1:08 PM [facility] ALKALINE PHOSPHATASE 80 40 - 129 U/L 08/22/2024 1:08 PM [facility] AST 18 0 - 50 U/L 08/22/2024 1:08 PM [facility] ALT 19 0 - 50 U/L 08/22/2024 1:08 PM [facility] GFR >60 >=60 mL/min/1.7 3 sq meter 08/22/2024 1:08 PM [facility] Comment:eGFR calculated with 2020 CKD-EPI equation. Vegetarian diet, extremely high or low muscle mass, and may affect results. Cystatin C with Glomerular Filtration Rate is a suitable alternative for these patients. ANION GAP 14 5 - 20 mmol/L 08/22/2024 1:08 PM [facility] Blood Venipuncture / Unknown 08/22/2024 12:25 PM LAST CLEANER 08/22/2024 12:39 PM LAST CLEANER us Savanna Reyez MD CHEMISTRY ORDERABLES Final Resu lt Performing Organization Address City/[facility]/ZIP Co de Phone Number [facility] [id number] [address] [place] [address] * (ABNORMAL) POC GLUCOSE (08/22/2024 11:34 AM LAST CLEANER) Pathologist [facility] GLUCOSE POC 272(H) 74 - 99 mg/dL 08/22/2024 11:34 AM [facility] SPECIMEN SOURCE, GLUCOSE POC Whole Blood 08/22/2024 11:34 AM [facility] Blood, whole 08/22/2024 11:3 4 AM LAST CLEANER 08/22/2024 11:41 AM LAST CLEANER us Interface Provider Poct POINT OF CARE TESTING Fi nal Result Performing Organization Address City/[facility]/ZIP Co de Phone Number [facility] # [id number] [address] [place] [address]198 from Last 3 Months Insurance [facility] CHOICE [id number] [place] [id number] [facility] CHOICE [id number] Care Teams [employer] Relationship Specialty Start Date End Date Ha Sena MD [address] [place] [id number] PCP - General Family Practice 08/29/22
--- OUTSIDE RECORDS SUMMARY | 2024-08-29 11:28 | XMS_ITS | Clinical Summary ---
Author Organization [facility] Address [address] [place] [id number] Care Team Providers Care Energy Scheduler Name Role Phone Ha Sena MD Primary Care Provider [phone] Allergies No known active allergies Medications dapagliflozin (FARXIGA) 10 MG tablet Take 1 tablet (10 mg total) by mouth daily. 08/05/2022 Active aspirin EC (ECOTRIN) 81 MG tablet Take 1 tablet (81 mg total) by mouth daily. Active TRADJENTA 5 MG tablet Take 1 tablet (5 mg total) by mouth daily. 09/16/2022 Active lisinopril (PRINIVIL) 10 MG tablet Take 1 tablet (10 mg total) by mouth daily. 07/08/2022 Active metFORMIN (GLUCOPHAGE) 500 MG tablet TAKE 2 TABLETS BY MOUTH TWICE A DAY WITH MORNING AND EVENING MEALS 08/03/2022 Active omeprazole (PRILOSEC) 10 MG capsule Take 1 capsule (10 mg total) by mouth daily. 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 Family History Medical History Relation Comments No Known Problems Father Leukomia Maternal Grandfather Alzheimers Maternal Grandmother Aneurysm Mother Heart Disease Paternal Grandfather [place] Paternal Grandfather Diabetes Paternal Grandmother Glaucoma Paternal Grandmother No Known Problems Sister Relation Status Comments Father Alive Maternal Grandfather Maternal Grandmother Mother Alive Paternal Grandfather Paternal Grandmother Sister Alive Social History Tobacco Use Types Packs/Day Years Used Date Smoking Tobacco: Every Day Cigarettes 0.3 35 Smokeless Tobacco: Never Tobacco Cessation:Ready to Q uit: Not Asked; Counseling Given: Not Answered Alcohol Use Standard Drinks/Week Comments Yes 0 (1 standard drink = 0.6 oz pur e alcohol) Sex and Gender Information Value Date Recorded Sex Assigned at Not on file Legal Sex Male 10:07 AM CDT Gender Identity Not on file Sexual Orientation Not on file Last Filed Vital Signs Vital Sign Reading Time Taken Comments Blood Pressure - - Pulse - - Temperature - - Respiratory Rate - - Oxygen Saturation - - Inhaled Oxygen Concentration - - Weight 99.8 kg (220 lb) 10/16/2022 1:22 PM CDT Height 172.7 cm (5' 8 ) 10/16/2022 1:22 PM CDT Body Mass Index 33.45 10/16/2022 1:22 PM CDT Plan of Treatment Health Maintenance Due Date Last Done Comments Colorectal Cancer Screening Colonoscopy (10 Years) 1967 Annual Physical 11/06/1970 Pneumococcal Vaccine: Pediat rics (0 to 5 Years) and At-Risk Patients (6 to 64 Years) (1 of 2 - PCV) 11/06/1973 Hepatitis C 11/06/1985 DTaP, Tdap and Td Vaccines ( 1 - Tdap) 11/06/1986 Hepatitis B Vaccines (1 of 3 - 19+ 3-dose series) 11/06/1986 Zoster Vaccines (1 of 2) 11/06/2017 COVID-19 Vaccine ( - 2023-2 5 season) 2024 Influenza Adult (#1) 2024 Meningococcal B Vaccine Aged Out No l onger eligible based on patient's age to complete this topic Meningococcal Vaccine Aged Out No chacho judy eligible based on patient's age to complete this topic RSV Immunizations Under 20 Months Aged Out No longer eligible based on patient's age to complete this topic Care Teams Energy Scheduler Relationship Specialty Start Date End Date Ha Sena MD [address] [place] [address] PCP - General FAMILY PRACTICE 10/01/22
== END 2024-08-29 08:36 | disposition home or self-care (01) ==
LOC: CHSCARD 08:38
PROVIDERS: PCP Family Medicine; Visit Provider Family Medicine
DX: R94.31 Abnormal electrocardiogram [ECG] [EKG] (principal)
CPT/HCPCS: 93017